=== PATIENT | male | born 1945 | race Caucasian/White ===

== ENCOUNTER 2017-02-08 17:18 | Emergency (ER) | payer MEDICARE, OTHER ==
[2017-02-08] MEDS ORDERED: Sodium Chloride 0.9% 1,000 ML IV ONE (17:36)
[2017-02-08] MEDS ORDERED: Diltiazem 25 MG/5 ML SDV IVPUSH ONE (17:38)
[2017-02-08] MEDS ORDERED: Diltiazem 25 MG/5 ML SDV IVPUSH STA (17:47)
[2017-02-08] MEDS ORDERED: Sodium Chloride 0.9% 10 ML Syringe FLUSH PRN (17:55)
[2017-02-08] MEDS ORDERED: Sodium Chloride 0.9% 1,000 ML IV SCH (19:45)
[2017-02-08] MEDS ORDERED: Metoprolol Tartrate 50 MG Tab PO ONE (20:03)
[2017-02-08 20:26] VITALS: BP 111/78
--- NOTE | 2017-02-08 20:28 | EDM.PDOC ---
ED HISTORY OF PRESENT ILLNESS - General Chief Complaint: Cardiovascular Problem Stated Complaint: RAPID HEARTBEAT Time Seen by Provider: 02/08/17 18:02 Source: Reports: Patient, Family History Limitations: Reports: No limitations - History of Present Illness INITIAL COMMENTS - FREE TEXT/NARRATIVE: 71 years old w m came to the ed after he was seen in the clinic due to a fib wit RVR. The physician was not able to convert the a fib to NSR. Pt has intermittent a fib for 9 years and takes Plavix for that. No N/V/D. Pt was transferred to the ed for further evaluation. Pt came to the ed with his , walking. Symptom Onset Date: 02/08/17 Symptom Onset Time: 07:00 Timing/Duration: Reports: Hour(s):, Intermittent Severity: mild Location, General: Reports: chest Quality: Reports: Same as previous episode Improves with: Reports: None Worsens with: Reports: None Associated Symptoms: Reports: denies other symptoms - Related Data Allergies/ADRs: Allergies Allergy/AdvReac Type Severity Reaction Status Date / Time aspirin Allergy Hives Verified 02/08/17 19:54 codeine Allergy Hives Verified 02/08/17 19:54 bee sting Allergy Hives Uncoded 02/08/17 19:54 Home Meds: Home Meds Cholecalciferol (Vitamin D3) [Vitamin D3] 2,000 unit PO DAILY 02/08/17 [History] Citalopram Hydrobromide [Celexa] 20 mg PO DAILY 02/08/17 [History] Clopidogrel [Plavix] 75 mg PO DAILY 02/08/17 [History] EPINEPHrine [Epipen JR] 0.15 mg IM ASDIRECTED 02/08/17 [History] Losartan [Cozaar] 100 mg PO DAILY 02/08/17 [History] Lovastatin [Mevacor] 20 mg PO DAILY 02/08/17 [History] Melatonin 5 mg PO BEDTIME 02/08/17 [History] Metoprolol Succinate 75 mg PO DAILY 02/08/17 [History] Multivitamin [Multiple Vitamins] 1 each PO DAILY 02/08/17 [History] Tamsulosin HCl [Flomax] 0.4 mg PO DAILY 02/08/17 [History] Zolpidem Tartrate [Ambien] 10 mg PO BEDTIME PRN 02/08/17 [History] traZODone 50 mg PO BEDTIME 02/08/17 [History] ED ROS GENERAL - Review of Systems Review Of Systems: See Below Constitutional: Reports: no symptoms HEENT: Reports: No symptoms Respiratory: Reports: No Symptoms Cardiovascular: Reports: No symptoms Endocrine: Reports: no symptoms GI/Abdominal: Reports: No symptoms : Reports: no symptoms Musculoskeletal: Reports: no symptoms Skin: Reports: no symptoms Neurological: Reports: No Symptoms Psychiatric: Reports: No symptoms Hematologic/Lymphatic: Reports: no symptoms Immunologic: Reports: no symptoms ED EXAM, GENERAL - Physical Exam Exam: See Below Exam Limited By: No limitations General Appearance: alert, WD/WN, no apparent distress Eye Exam: bilateral eye: normal inspection Ears: normal external exam, normal canal Ear Exam: bilateral ear: auricle normal Nose: normal inspection, normal mucosa, no blood Throat/Mouth: Normal inspection, Normal lips, Normal teeth, Other (dry mucosal membranes) Head: atraumatic, normocephalic Neck: normal inspection, supple, non-tender, full range of motion Respiratory/Chest: no respiratory distress, lungs clear, normal breath sounds, no accessory muscle use, chest non-tender Cardiovascular: irregularly irregular (rate 122-133) Peripheral Pulses: 2+: femoral (L), femoral (R) GI/Abdominal: normal bowel sounds (Male) Exam: Deferred Rectal (Males) Exam: Deferred Back Exam: normal inspection, full range of motion Extremities: normal inspection, normal range of motion, non-tender, no pedal edema Neurological: alert, oriented, CN II-XII intact, normal cognition, normal gait Psychiatric: normal affect Skin Exam: Warm, Dry, Intact Lymphatic: no adenopathy EKG INTERPRETATION EKG Date: 02/08/17 Time: 17:35 Rhythm: a-fib [place]: normal P-wave: absent QRS: normal ST-T: normal QT: normal Comparison: NA - no prior EKG EKG Interpretation Comments: 2nd EC02/08/2017 19.10 after NS and cariacem A fib with NVR rate 89 bpm QTc 469 Course - Vital Signs Text/Narrative:: 71 years old w m came to the ed after he was seen in the clinic due to a fib wit RVR. The physician was not able to convert the a fib to NSR. Pt has intermittent a fib for 9 years and takes Plavix for that. No N/V/D. Pt is on Plavix. Pt was transferred to the ed for further evaluation. Pt came to the ed with his , walking. PE: A fib with RVR, no dizziness of lighthaedness, nl gait. Labs: BMP and CBC WNL Impression: A fib with RVR Tx: NS, Cardiazem and Metoprolol Reexam: Improved to a rate of 77-89, was observed for a while in the ed befor D/ C to home. Plan: D/C with instructions Last Recorded V/S: Last Vital Signs Temp 36.7 C 02/08/17 17:27 Pulse 85 02/08/17 20:10 Resp 18 02/08/17 17:27 BP 140/79 02/08/17 20:10 Pulse Ox 98 02/08/17 17:27 - Orders/Labs/Meds Orders: Active Orders 24 hr Category Date Time Status EKG Documentation Completion [RC] ASDIRECTED Care 02/08/17 19:13 Active Sodium Chloride 0.9% [Normal Saline] 1,000 ml Med 02/08/17 19:45 Active IV ASDIRECTED Sodium Chloride 0.9% [Saline Flush] Med 02/08/17 17:55 Active 10 ml FLUSH ASDIRECTED PRN Saline Lock Insert [OM.PC] Routine Oth 02/08/17 17:55 Ordered EKG 12 Lead [EK] Routine Ther 02/08/17 19:13 Ordered Medication Orders Sodium Chloride (Normal Saline) 1,000 mls @ 250 mls/hr IV ASDIRECTED ADOLFO Last Admin: 02/08/17 19:48 Dose: 250 mls/hr Sodium Chloride (Saline Flush) 10 ml FLUSH ASDIRECTED PRN PRN Reason: Keep Vein Open Last Admin: 02/08/17 19:48 Dose: 10 ml Labs: Laboratory Tests 02/08/17 02/08/17 02/08/17 Range/Units 17:45 17:45 17:45 WBC 7.3 (4.5-12.0) X10-3/uL RBC 5.41 (4.30-5.75) x10(6)uL Hgb 14.3 (11.5-15.5) g/dL Hct 43.3 (30.0-51.3) % MCV 80.1 (80-96) fL MCH 26.4 L (27.7-33.6) pg MCHC 33.0 (32.2-35.4) g/dL RDW 12.9 (11.5-15.5) % Plt Count 182 (125-369) X10(3)uL MPV 7.9 (7.4-10.4) fL Neut % (Auto) 73.2 (46-82) % Lymph % (Auto) 17.4 (13-37) % [place] % (Auto) 7.3 (4-12) % Eos % (Auto) 1 (1.0-5.0) % Baso % (Auto) 1 (0-2) % Neut # (Auto) 5.3 (1.6-8.3) # Lymph # (Auto) 1.3 (0.6-5.0) # [place]uel # (Auto) 0.5 (0.0-1.3) # Eos # (Auto) 0.1 (0.0-0.8) # Baso # (Auto) 0.1 (0.0-0.2) # PT 10.4 (8.7-11.1) INR 1.03 (0.89-1.13) Sodium 138 (135-145) mmol/L Potassium 4.3 (3.5-5.3) mmol/L Chloride 108 (100-110) mmol/L Carbon Dioxide 23 (23-29) mmol/L BUN 23 (8-23) mg/dL Creatinine 1.2 (0.6-1.3) mg/dL Est Cr Clr Drug Dosing TNP Estimated GFR (MDRD) 59 L (>60) BUN/Creatinine Ratio 19.2 (9-20) Glucose 107 (80-116) mg/dL Calcium 8.8 (8.6-10.2) mg/dL B-Natriuretic Peptide (0-100) pg/mL 02/08/17 Range/Units 17:45 WBC (4.5-12.0) X10-3/uL RBC (4.30-5.75) x10(6)uL Hgb (11.5-15.5) g/dL Hct (30.0-51.3) % MCV (80-96) fL MCH (27.7-33.6) pg MCHC (32.2-35.4) g/dL RDW (11.5-15.5) % Plt Count (125-369) X10(3)uL MPV (7.4-10.4) fL Neut % (Auto) (46-82) % Lymph % (Auto) (13-37) % [place] % (Auto) (4-12) % Eos % (Auto) (1.0-5.0) % Baso % (Auto) (0-2) % Neut # (Auto) (1.6-8.3) # Lymph # (Auto) (0.6-5.0) # Deuel # (Auto) (0.0-1.3) # Eos # (Auto) (0.0-0.8) # Baso # (Auto) (0.0-0.2) # PT (8.7-11.1) INR (0.89-1.13) Sodium (135-145) mmol/L Potassium (3.5-5.3) mmol/L Chloride (100-110) mmol/L Carbon Dioxide (23-29) mmol/L BUN (8-23) mg/dL Creatinine (0.6-1.3) mg/dL Est Cr Clr Drug Dosing Estimated GFR (MDRD) (>60) BUN/Creatinine Ratio (9-20) Glucose (80-116) mg/dL Calcium (8.6-10.2) mg/dL B-Natriuretic Peptide 649 H (0-100) pg/mL Meds: Medications Generic Name Dose Route Start Last Admin Trade Name Freq PRN Reason Stop Dose Admin Sodium Chloride 1,000 mls @ 250 mls/hr 02/08/17 19:45 02/08/17 19:48 Normal Saline IV 250 mls/hr ASDIRECTED ADOLFO Administration Sodium Chloride 10 ml 02/08/17 17:55 02/08/17 19:48 Saline Flush FLUSH 10 ml ASDIRECTED PRN Administration Keep Vein Open Discontinued Medications Generic Name Dose Route Start Last Admin Trade Name Freq PRN Reason Stop Dose Admin Diltiazem HCl 10 mg 02/08/17 17:38 02/08/17 18:59 Diltiazem IVPUSH 02/08/17 17:39 Not Given ONETIME ONE Diltiazem HCl 20 mg 02/08/17 17:47 02/08/17 18:02 Diltiazem IVPUSH 02/08/17 17:48 20 mg ONETIME STA Administration Sodium Chloride 1,000 mls @ 999 mls/hr 02/08/17 17:36 02/08/17 18:02 Normal Saline IV 02/08/17 18:36 999 mls/hr .BOLUS ONE Administration Metoprolol Tartrate 50 mg 02/08/17 20:03 02/08/17 20:10 Lopressor PO 02/08/17 20:04 50 mg ONETIME ONE Administration Departure - Departure Time of Disposition: 20:36 Disposition: Home, Self-Care 01 Condition: good Clinical Impression: Atrial fibrillation Qualifiers: Atrial fibrillation type: paroxysmal Qualified Code(s): I48.0 - Paroxysmal atrial fibrillation Instructions: Atrial Fibrillation, [id number] Referrals: Jamel Barger MD [Primary Care Provider] - Forms: ED Department Discharge Additional Instructions: Please increase your Metoprolol dose to 50 mg twice daily. Please f/u, please come back to the ed if symptoms get worse acutely - My Orders Last 24 Hours: My Active Orders 02/08/17 17:55 Sodium Chloride 0.9% [Saline Flush] 10 ml FLUSH ASDIRECTED PRN Saline Lock Insert [OM.PC] Routine 02/08/17 19:13 EKG Documentation Completion [RC] ASDIRECTED EKG 12 Lead [EK] Routine 02/08/17 19:45 Sodium Chloride 0.9% [Normal Saline] 1,000 ml IV ASDIRECTED - Assessment/Plan Last 24 Hours: My Active Orders 02/08/17 17:55 Sodium Chloride 0.9% [Saline Flush] 10 ml FLUSH ASDIRECTED PRN Saline Lock Insert [OM.PC] Routine 02/08/17 19:13 EKG Documentation Completion [RC] ASDIRECTED EKG 12 Lead [EK] Routine 02/08/17 19:45 Sodium Chloride 0.9% [Normal Saline] 1,000 ml IV ASDIRECTED
== END 2017-02-08 21:10 | disposition home or self-care (01) ==
LOC: FB.ED 17:18
DX: I48.0 Paroxysmal atrial fibrillation (principal); Z88.6 Allergy status to analgesic agent; Z88.5 Allergy status to narcotic agent; Z91.030 Bee allergy status; Z79.899 Other long term (current) drug therapy
CPT/HCPCS: 80048; 83880; 85025; 85610; 93005; 96361; 96374; 99284; 99285; A9270; J7040; J7050; J3490

== ENCOUNTER 2021-12-05 08:31 | Emergency (ER) | payer MEDICARE, OTHER ==
[2021-12-05] MEDS ORDERED: LORazepam 0.5 MG Tab PO ONE (09:18)
[2021-12-05] MEDS ORDERED: Losartan 50 MG Tab PO ONE (09:20)
[2021-12-05 10:27] VITALS: BP 149/85; PULSE 90
== END 2021-12-05 11:00 | disposition home or self-care (01) ==
LOC: FB.ED 08:31
DX: U07.1 COVID-19 (principal); F41.9 Anxiety disorder, unspecified; T46.6X5A Adverse effect of antihyperlipidemic and antiarteriosclerotic drugs, initial encounter; I48.91 Unspecified atrial fibrillation; I10 Essential (primary) hypertension; E78.00 Pure hypercholesterolemia, unspecified; Z88.8 Allergy status to other drugs, medicaments and biological substances; Z88.5 Allergy status to narcotic agent; Z91.030 Bee allergy status; Z79.899 Other long term (current) drug therapy
CPT/HCPCS: 36415; 80053; 81001; 85025; 99284; A9270-GY

== ENCOUNTER 2022-04-25 11:54 | Emergency (ER) | payer MEDICARE, OTHER ==
[2022-04-25] MEDS ORDERED: diphenhydrAMINE 50 MG/ML SDV IM STA (12:18)
[2022-04-25] MEDS ORDERED: predniSONE 20 MG Tab PO STA (12:18)
[2022-04-25 13:31] VITALS: BP 149/91; PULSE 89
== END 2022-04-25 13:15 | disposition home or self-care (01) ==
LOC: FB.ED 11:54
DX: T63.441A Toxic effect of venom of bees, accidental (unintentional), initial encounter (principal); I48.91 Unspecified atrial fibrillation; I10 Essential (primary) hypertension; Z86.16 Personal history of COVID-19; Z90.49 Acquired absence of other specified parts of digestive tract; Z79.899 Other long term (current) drug therapy; Z79.01 Long term (current) use of anticoagulants; Z88.6 Allergy status to analgesic agent; Z88.5 Allergy status to narcotic agent; Z91.030 Bee allergy status
CPT/HCPCS: 96372; 99282; J1200; J7512; 99281

== ENCOUNTER 2024-03-12 15:32 | Emergency (ER) | payer OTHER, MEDICARE ==
[2024-03-12 16:21] LABS: BASOPHILS PERCENT AUTO 0.4 % (0.3-3.8); EOSINOPHILS ABSOLUTE AUTO 0.1 x10-3/uL (0.0-0.6); EOSINOPHILS PERCENT AUTO 0.7 % (0.1-6.8); HEMATOCRIT 36.5 % (38.3-50.1); HEMOGLOBIN 11.8 g/dL (12.9-17.7); LYMPHOCYTES ABSOLUTE AUTO 0.7 x10-3/uL (0.5-4.5); LYMPHOCYTES PERCENT AUTO 6.5 % (15.8-45.3); MEAN CORPUSCULAR HEMOGLOBIN 24.1 pg (27.0-33.3); MEAN CORPUSCULAR HGB CONC 32.4 g/dL (28.7-35.3); MEAN CORPUSCULAR VOLUME 74.3 fL (80.8-98.7); MEAN PLATELET VOLUME 8.4 fL (6.7-11.0); MONOCYTES PERCENT AUTO 9.7 % (5.5-15.2); NEUTROPHILS ABSOLUTE AUTO 8.3 x10-3/uL (1.7-6.9); NEUTROPHILS PERCENT AUTO 82.7 % (40.3-71.8); PLATELET COUNT,PLT 206 x10(3)uL (117-477); RED BLOOD CELL COUNT 4.91 x10(6)uL (3.90-5.90); RED CELL DISTRIBUTION WIDTH 17.3 % (12.4-15.0)
[2024-03-12 16:23] LABS: BLOOD UREA NITROGEN,BUN 13 mg/dL (7-18); CALCIUM 8.6 mg/dL (8.6-10.2); CARBON DIOXIDE,CO2 29 mmol/L (21-32); CHLORIDE,CL 106 mmol/L (100-110); ESTIMATED GFR 76 mL/min (>60); GLUCOSE RANDOM 95 mg/dL (80-116); POTASSIUM,K 3.7 mmol/L (3.5-5.3); SODIUM,NA 142 mmol/L (135-145)
[2024-03-12 16:25] LABS: INR 1.26 (1.00-1.24); PROTHROMBIN TIME 12.9 sec (9.0-11.1)
[2024-03-12 16:27] LABS: CORONAVIRUS COVID-19 NAA NEGATIVE (NEGATIVE); INFLUENZA A NAA NEGATIVE (NEGATIVE); INFLUENZA B NAA NEGATIVE (NEGATIVE); RESPIRATORY SYNCYTIAL VIR NAA NEGATIVE (NEGATIVE)
[2024-03-12 16:29] LABS: A/G RATIO 0.9; ALANINE AMINOTRANSFERASE,ALT 22 U/L (12-36); ALBUMIN 2.7 g/dL (3.2-4.6); ALKALINE PHOSPHATASE 90 IU/L (56-112); ASPARTATE AMNIOTRANSFERASE,AST 16 IU/L (5-25); BILIRUBIN TOTAL 0.6 mg/dL (0.1-1.3); PROTEIN TOTAL,TP 5.6 g/dL (6.0-8.0)
[2024-03-12 16:33] LABS: LACTIC ACID 0.8 mmol/L (0.4-2.0)
[2024-03-12 16:36] LABS: TROPONIN I 6.7 pg/mL (4.0-60.3)
[2024-03-12] MEDS: Metolazone 5 MG Tab PO ONE (18:15)
[2024-03-12 18:24] VITALS: BP 130/82; PULSE 97
[2024-03-12] MEDS: Metolazone 2.5 MG Tab ONE (18:25)
== END 2024-03-12 18:24 | disposition home or self-care (01) ==
LOC: FB.ED 15:32
DX: I11.0 Hypertensive heart disease with heart failure (principal); I50.9 Heart failure, unspecified; E78.00 Pure hypercholesterolemia, unspecified; E66.9 Obesity, unspecified; K21.9 Gastro-esophageal reflux disease without esophagitis; Z87.891 Personal history of nicotine dependence; Z86.16 Personal history of COVID-19; Z79.899 Other long term (current) drug therapy; Z88.5 Allergy status to narcotic agent; Z88.6 Allergy status to analgesic agent; Z91.030 Bee allergy status
CPT/HCPCS: 0241U; 36415; 71045; 80053; 83605; 83880; 84484; 85025; 85610; 93005; 93010; 99284; 99285; A9270-GY